=== PATIENT | female | born 1990 | race Caucasian/White ===

== ENCOUNTER 2019-04-25 20:36 | Emergency (ER) | payer OTHER ==
[~2019-04-25] VITALS: Ht 177.8 cm; Wt 58.5 kg
[2019-04-25 20:40] VITALS: BP 132/82
[2019-04-25] MEDS ORDERED: LEXAPRO 10 MG T10 MG PO (20:44)
[2019-04-25] MEDS ORDERED: IBUPROFEN 600600 M1 PO (21:46)
== END 2019-04-25 21:59 | disposition home or self-care (01) ==
LOC: ER 20:36
DX: S83.8X2A Sprain of other specified parts of left knee, initial encounter (principal); F17.210 Nicotine dependence, cigarettes, uncomplicated; Z88.8 Allergy status to other drugs, medicaments and biological substances; W10.9XXA Fall (on) (from) unspecified stairs and steps, initial encounter; Y92.89 Other specified places as the place of occurrence of the external cause; Y93.89 Activity, other specified; Y99.8 Other external cause status